=== PATIENT | female | born 1960 | race Caucasian/White ===

== ENCOUNTER 2017-01-24 10:15 | Emergency (ER) | payer BC ==
[2017-01-24] MEDS ORDERED: Meclizine TAB* 12.5 MG PO ONE (11:28)
--- NOTE | 2017-01-24 14:43 | UC ---
Gloria Blackwood Salem, scribed for Irvin Krueger MD on 01/24/17 at 1122 . Dizzy HPI HPI Summary: Patient is a 56 y/o female who presents to the with dizziness since 4 days. She reports that she had an allergy attack last week and reports sneezing. She c/o of room spinning dizziness and vomiting. She reports that dizziness is worsened with movement of the head. She also reports tingling in both legs, but denies tinnitus. She also states that the heart catheterization was negative. Prior record reviewed: mention from prior consult that heart catheterization is required. - History Of Current Complaint Chief Complaint: UCGeneralIllness Stated Complaint: DIZZY Time Seen by Provider: 01/24/17 11:03 Hx Obtained From: Patient Onset/Duration: Gradual Onset, Lasting Days Severity Initially: Moderate Severity Currently: Moderate Character: Room Spinning Aggravating Factor(s): Position Change - of head. Alleviating Factor(s): Nothing Associated Signs And Symptoms: Positive: Vomiting. Negative: Tinnitus - Allergies/Home Medications Allergies/Adverse Reactions: Allergies Allergy/AdvReac Type Severity Reaction Status Date / Time Meperidine [From Demerol HCl] Allergy Airway Verified 01/24/17 10:50 Obstruction Home Medications: Home Medications Acetaminophen [Tylenol] 01/24/17 [History] PMH/Surg Hx/FS Hx/Imm Hx Cardiovascular History Of: Reports: Cardiac Disorders - stress heartattack, Myocardial Infarction - Surgical History Surgical History: Yes Surgery Procedure, Year, and Place: c-sections - Family History Known Family History: Positive: Other - HLD. - Social History Alcohol Use: None Substance Use Type: None Smoking Status (MU): Never Smoked Tobacco Review of Systems Constitutional: Negative ENT: Negative Gastrointestinal: Vomiting Musculoskeletal: Other: - Tingling in both legs from excessive bed rest. All Other Systems Reviewed And Are Negative: Yes Physical Exam Triage Information Reviewed: Yes Appearance: Well-Appearing, No Pain Distress Vital Signs: Initial Vital Signs Temp 99.0 F 01/24/17 10:50 Pulse 81 01/24/17 10:50 Resp 16 01/24/17 10:50 BP 119/82 01/24/17 10:50 Pulse Ox 96 01/24/17 10:50 Vital Signs Reviewed: Yes ENT: Positive: Other: - MMM. TM pearly white, no effusions. No carotid bruits. EOMI. Neck: Positive: Supple, Nontender, No Lymphadenopathy Respiratory: Positive: Lungs clear. Negative: Wheezing Cardiovascular: Positive: RRR, No Murmur, Other: - No rubs or gallops. Abdomen Description: Positive: Nontender, No Organomegaly, Soft Musculoskeletal: Positive: Strength Intact, No Edema Neurological: Positive: Alert, Other: - Cranial nerves 3-12 intact. Negative pronator drift. Slzvhp-ur-enrv intact. Pqqp-zj-iowx intact. No nystagmus. Psychological: Positive: Age Appropriate Behavior Diagnostics - EKG Cardiac Rate: NL - 78 bpm. J point elevation V1-V3, which is presents as well on prior EKG 01/26/09. Dizzy Course/Dx - Course Course Of Treatment: Isolated vertigo for 4 days. Neurologic exam otherwise intact. We have considered stroke or tumor, but she is low risk for these. She will report immediately to ER for new sx. Otherwise refer to ENT for possible imaging and cranial 8 testing. - Differential Dx/Diagnosis Differential Diagnosis/HQI/PQRI: Anxiety, Coronary Artery Disease, Dysrhythmia, Labyrinthitis, Myocardial Infarction, Vasovagal Reaction Provider Diagnoses: Vertigo. Discharge - Discharge Plan Condition: Stable Disposition: HOME Prescriptions: Meclizine HCl [Meclizine 25] 25 mg PO TID PRN #20 tab PRN Reason: Dizziness Patient Education Materials: Vertigo (ED) Referrals: Chip Jaime MD [Primary Care Provider] - Trey Haywood MD [Medical Doctor] - The documentation as recorded by the Gloria uribe Salem accurately reflects the service I personally performed and the decisions made by Evans sánchez Farzad, MD.
== END 2017-01-24 11:36 | disposition home or self-care (01) ==
LOC: UCEAST 10:15
DX: R42 Dizziness and giddiness (principal); R20.2 Paresthesia of skin; Z88.5 Allergy status to narcotic agent
CPT/HCPCS: 93005; 99202; A9270-GY; G0463

== ENCOUNTER 2020-01-25 09:33 | Emergency (ER) | payer BC ==
--- OUTSIDE RECORDS SUMMARY | 2020-01-25 10:18 | XMS REPORT | Continuity of Care Document ---
:1960 External Reference #:[id number] Author Name Jory Anthony NP Address [address] [facility] [place] [address] Care Team Providers Name Role Phone Arlene Tomlin M.D. - Family Medicine Care Team Information Insurance Claims Examiner Unavailable Problems Active Problems Provider Date Salena Tomlin M.D. Onset: 11/10/2019 Anxiety Arlene Tomlin M.D. Onset: 11/10/2019 Social History Type Date Description Comments Sex Unknown Tobacco Use Start: Unknown Never Smoked Cigarettes ETOH Use Denies alcohol use Tobacco Use Start: Unknown Never Smoked Cigarettes Smoking Status Reviewed: 12/31/19 Never Smoked Cigarettes Exercise Type/Frequency Exercises sporadically Allergies, Adverse Reactions, Alerts Active Allergies Reaction Severity Comments Date Demerol mother had severe rx 02/07/2017 Codeine vomiting 02/07/2017 Medications Active Medications SIG Qnty Indications Ordering Provider Date Bupropion take 1 tablets 60tabs F34.1 Arlene Tomlin, 05/18/2019 Hydrochloride ER (XL) by mouth once M.D. daily 150mg Tablets ER 24HR Immunizations CPT Code Status Date Vaccine Lot # [id number] Given 12/31/2019 Tdap Tetanus, W Pertussis [id number] Vital Signs Date Vital Result Comment 12/31/2019 10:07am BP Systolic 110 mmHg BP Diastolic 68 mmHg Heart Rate 66 /min Body Temperature 98.1 F Respiratory Rate 16 /min Weight 171.00 lb 12/01/2019 9:13am BP Systolic 110 mmHg BP Diastolic 60 mmHg Heart Rate 66 /min Body Temperature 98.4 F Respiratory Rate 16 /min Height 68.25 inches 5'8.25" easured 12/01/2019 Weight 167.00 lb BMI (Body Mass Index) 25.2 kg/m2 Right Visual Acuity Distance 20/100 Left Visual Acuity Distance 20/25 Results Test Acquired Date Facility Test Result H/L Range Note Laboratory test 12/01/2019 [facility] Hemoglobin A1c 4.9 % 4.1-5.7 finding (607)- - ([facility]) CBC Electronic 12/01/2019 [facility] WBC 5.00 4.0-10.0 ([facility]) (607)- - RBC 4.71 3.93-6.0 Hemoglobin (Fma/CMC/CTX) 14.2 g/dL 12.0-17.0 Hematocrit (Fma/CMC/CTX) 43.0 % 35.0-50.0 Mean Corpuscular Vol 91.3 fL 80-95 Mean Corpuscular Hemoglobin 30.1 pg 25.6-32.2 Mean Corpuscular Hemo Concen 33.0 g/dL 32.2-36.0 Platelets 327 10^3/ul 163-400 RDW-CV 12.3 11.6-14.4 Mean Platelet Volume 9.2 fL 8.0-12.4 Absolute Neutrophils BLD 3.14 1.56-6.13 Absolute Lymphocytes 1.05 Low 1.18-3.74 Absolute Monocytes BLD Auto 0.46 0.24-0.82 Absolute Eos Blood 0.27 0.04-0.54 Absolute Basophils 0.08 0.01-0.08 Neutrophil % 62.8 % 34.0-70.0 Lymph% 21.0 % 20.0-52.0 Monocytes % 9.2 % 5.0-12.0 Eos % 5.4 % 0.7-7.0 Basophil% 1.6 % High 0-1.2 Lipid Profile 12/01/2019 [facility] Cholesterol 254 mg/dL High 120-200 Triglycerides 111 mg/dL 30-200 HDL Cholesterol 60 mg/dL 30-85 LDL (Calculated) 172 CALC High 0-129 VLDL Cholesterol 22 mg/dL 0-50 HDL Risk Factor 4.2 CALC 0.0-4.4 Comprehensive Metabolic 12/01/2019 [facility]) Sodium 142 mEq/L 134-149 Prof Potassium 4.4 mEq/L 3.6-5.5 Chloride 103 mEq/L 94-112 Carbon Dioxide 27 mEq/L 21-32 Glucose 104 mg/dL 70-105 BUN 12 mg/dL 6-26 Creatinine 0.7 mg/dL 0.6-1.4 BUN/Creat Ratio 17.1 CALC 8.0-36.0 Calcium 10.1 mg/dL 8.9-10.6 Total Protein 7.0 g/dL 6.4-8.3 Albumin 4.7 g/dL 3.8-5.5 Globulin 2.3 g/dL 2.0-4.8 A/G Ratio 2.0 CALC 0.6-2.3 Alk. Phosphatase 66 U/L 30-110 Alt (SGPT) 11 U/L 7-35 Ast (Sgot) 15 U/L 5-34 Total Bilirubin 0.7 mg/dL 0.2-1.3 GFR Non- >60 ml/min/1.73m^ >=60 GFR >60 ml/min/1.73m^ >=60 Laboratory test 12/01/2019 [facility] TSH 1.91 mIU/L 0.50-6.00 finding Laboratory test 12/01/2019 [facility] Cytology SEE RESULT 1 finding Thinprep BELOW w/rfx([facility] [place]) Urine Culture And 11/12/2019 [facility] Urine Culture SEE RESULT 2 Sensitivities BELOW Ua - Micro (Fma) 11/12/2019 family [facility] Appearance clear (607)- - Color yellow Glucose, Urine (Fma/CMC/CTX) neg Bilirubin neg Ketones neg SP Grav 1.020 Blood neg PH 5.5 Protein neg Urobil 0.2 Nitrite neg Leukocytes (Fma/CMC/Centrex) trace Hyaline - /Lpf Granular - /Lpf WBC (Fma,Centrex) 5-7 RBC 0-1 Mucus (Fma/CBC/Centrex) - /Lpf Epith few /Lpf Bacteria trace /Hpf Amorphous (Fma/CMC/Centrex) - /Lpf Crystals, Fluid (Fma/CMC/CTX) - Z#Comments - 1 SEE RESULT BELOW Name: ALFREDO SHARPE : [address]: Arlene Tomlin MD Acct: [id number] Unit: [id number] AGE: 59 Location: [facility] Re12/01/19 SEX: F Status: REG REF SPEC: [id number] CHAVA: 12/01/19-[address] [facility] [address]: Arlene Tomlin MD REQ: [id number] RECD: 12/03/19 STATUS: SOUT _ ORDERED: TP IMAGE ANALYS, HPV/Thin Prep, HPV 16/18 GENE COMMENTS: [id number] FINAL DIAGNOSIS Negative for Intraepithelial lesion or Malignancy HPV RESULTS Date Time Test Result Flag (u) Normal Range 12/02/19 1004 HPV EBONI RFLX GE Negative Negative The high-risk HPV types detected by the assay include: 16, 18, 31, 33, 35, 39, 45, 51, 52, 56, 58, 59, 66, and 68. SPECIMEN(S) RECEIVED A. Ectocervical/Endocervical CYTOLOGY ADEQUACY Specimen Adequacy: Satisfactory of evaluation Transformation zone component identified CONTINUED ON NEXT PAGE DEPARTMENT OF PATHOLOGY, [address] [place] [address] Abhi Sam M.D. Director [facility] # [id number] CYTOLOGY PATIENT INFORMATION Patient Information: HPV: High risk HPV RNA testing regardless of pap results. HPV 16/18 Genotype Reflex Actual Specimen Date: 12/01/19 Spec Date if unknown: 2006 Post Menopausal?: Y Hysterectomy?: N Previous Abnormal Pap Smears?:N Signed by and Reported on: TAMMIE Davis(ASCP) [id number] This Pap test was evaluated with the assistance of the HightowerPrep Test Imaging System. Due to cytologic findings at the distribution district supervisor microscope, comprehensive manual rescreening by a Game And Fish Protector may be required. The Pap Smear is a screening test designed to aid in the detection of premalignant and malignant conditions of the uterine cervix. It is not a diagnostic procedure and should not be used as the sole means of detecting cervical cancer. Both false- positive and false- negative reports do occur. Depending on your risk status, a Pap smear should be obtained and evaluated every 1-3 years. END OF REPORT DEPARTMENT OF PATHOLOGY, [address] [place] [address] Abih Sam M.D. Director [facility] # [id number] 2 SEE RESULT BELOW Name: ALFREDO SHARPE : [address]: Arlene Tomlin MD Acct: [id number] Unit: [id number] AGE: 59 Location: [facility] Re11/12/19 SEX: F Status: REG REF SPEC: [id number] CHAVA: 11/12/19-[address]: Arlene Tomlin MD REQ: [id number] RECD: 11/13/19 STATUS: COMP _ SOURCE: URINE SPDESC: ORDERED: Urine Culture COMMENTS: [id number] 1 marti Urine Source: Random Procedure Result Reported Site Urine Culture Final 11/15/19- 1324 ML Organism 1 STREP GROUP B [place] Count 1-10,000 (Few) CFU/ML Susceptibility testing of penicillins and other B-lactams approved by FDA for treatment of Streptococcus pyogenes (Group A Strep) and Streptococcus agalactiae (Group B Strep) is not necessary for clinical purposes and need not be done routinely, since as with vancomycin, resistant strains have not been recognized. (CLSI B521-H67;p.66) Positive isolates will be saved for one week. Please call the Microbiology Laboratory if further susceptibility testing is needed. * - Main Lab . END OF REPORT DEPARTMENT OF PATHOLOGY, [address] [place] [address] Abhi Sam M.D. Director [facility] # [id number] Procedures Date Code Description Status 12/01/2019 34111 Vision Test- screening test of visual acuity, Completed quantitative, bila Medical Devices Description No Information Available Encounters Type Date Location Provider Dx Diagnosis Office Visit 12/31/2019 Main Office Jory Freeman K80.20 Calculus of 10:00a KARLI Anthony gallbladder w/o cholecystitis w/o obstruction R10.10 Upper abdominal pain, unspecified Z23 Encounter for immunization Office Visit 12/01/2019 9:20a Main Office Arlene Tomlin, Z00.00 Encntr for general M.D. adult medical exam w/o abnormal findings N84.1 Polyp of cervix uteri F41.9 Anxiety disorder, unspecified E78.5 Hyperlipidemia, unspecified R73.01 Impaired fasting glucose Office Visit 11/12/2019 6:40p Main Office Arlene Tomlin F41.9 Anxiety disorder, MVikasD. unspecified E78.5 Hyperlipidemia, unspecified R73.01 Impaired fasting glucose R30.0 Dysuria Z12.31 Encntr screen mammogram for malignant neoplasm of breast Z12.11 Encounter for screening for malignant neoplasm of colon Assessments Date Code Description Provider 12/31/2019 K80.20 Calculus of gallbladder without Jory Anthony NP cholecystitis without obstruction 12/31/2019 R10.10 Upper abdominal pain, unspecified Jory Anthony NP 12/31/2019 Z23 Encounter for immunization Jory Anthony NP 12/01/2019 Z00.00 Encounter for general adult medical Arlene Tomlin M.D. examination without abnormal findings 12/01/2019 N84.1 Polyp of cervix uteri Arlene Tolmin M.D. 12/01/2019 F41.9 Anxiety disorder, unspecified Arlene Tomlin M.D. 12/01/2019 E78.5 Hyperlipidemia, unspecified Arlene Tomlin M.D. 12/01/2019 R73.01 Impaired fasting glucose Arlene Tomlin M.D. 11/12/2019 F41.9 Anxiety disorder, unspecified Arlene Tomlin M.D. 11/12/2019 E78.5 Hyperlipidemia, unspecified Arlene Tomlin M.D. 11/12/2019 R73.01 Impaired fasting glucose Arlene Tomlin M.D. 11/12/2019 R30.0 Dysuria Arlene Tomlin M.D. 11/12/2019 Z12.31 Encounter for screening mammogram for Arlene Tomlin M.D. malignant neoplasm of breast 11/12/2019 Z12.11 Encounter for screening for malignant Arlene Tomlin M.D. neoplasm of colon Plan of Treatment 12/31/2019 - Jory Anthony, NPK80.20 Calculus of gallbladder without cholecystitis without obstructionComments:Referral to surgical associates US compeleted 10/2018; sx consistent with cholecystitis no pain at present, will refer with the plan that if pain returns/worsens, she seeks medical attention for more acute intervention avoid triggering foods patient instructed to call back if condition fails to improve or worsens.R10.10 Upper abdominal pain, unspecifiedComments:suspect cholecystitis; known gallstones no pain present at this timeZ23 Encounter for immunizationComments:Tdap administered, this is good for 10 years without insult. If you get a possible exposure after 5 years, your provider may decide to give you a booster. This vaccine also protects you against pertussis, or "whooping cough" also known as the "100 day cough ".AllComments:Medication Management Patient Understands medications he 's taking? Yes No Are there Barriers to Adherence? Yes No Has the patient been asked about herbal supplements and therapies, andOTC meds? Yes No Care Plan1. Patient has been queried about patient's goals/ preferences and functional/lifestyle goals at relevant visits. If relevant, describe: na2. Treatment goals as explained to the patient: above3. Are there barriers to meeting treatment goals? Yes No If Yes, please describe: disease process 4. Self-Management goals as described to the patient: Yes NoAs always, we strongly encourage a healthy diet and making physical activity a part of your every day life. If you have questions about how or where to start , please contact the office. Functional Status Description No Information Available Mental Status Description No Information Available Referrals Refer to Reason for Referral Status Appt Date Luba Davis MD colonoscopy jw Scheduled 02/13/[address] [place] [address] [phone]
--- OUTSIDE RECORDS SUMMARY | 2020-01-25 10:18 | XMS REPORT | Continuity of Care Document ---
:1960 External Reference #:[id number] Author Name Arlene Tomlin M.D. Address [address] [facility] [place] [address] Care Team Providers Name Role Phone Arlene Tomlin M.D. - Family Medicine Care Team Information Phone Counselor Unavailable Problems Active Problems Provider Date Salena Tomlin M.D. Onset: 11/10/2019 Anxiety Arlene Tomlin M.D. Onset: 11/10/2019 Social History Type Date Description Comments Sex Unknown Tobacco Use Start: Unknown Never Smoked Cigarettes ETOH Use Denies alcohol use Tobacco Use Start: Unknown Never Smoked Cigarettes Smoking Status Reviewed: 12/01/19 Never Smoked Cigarettes Exercise Type/Frequency Exercises sporadically Allergies, Adverse Reactions, Alerts Active Allergies Reaction Severity Comments Date Demerol mother had severe rx 02/07/2017 Codeine vomiting 02/07/2017 Medications Active Medications SIG Qnty Indications Ordering Provider Date Bupropion take 1 tablets 60tabs F34.1 Arlene Tomlin, 05/18/2019 Hydrochloride ER (XL) by mouth once M.D. daily 150mg Tablets ER 24HR Immunizations Description No Information Available Vital Signs Date Vital Result Comment 12/01/2019 9:13am BP Systolic 110 mmHg BP Diastolic 60 mmHg Heart Rate 66 /min Body Temperature 98.4 F Respiratory Rate 16 /min Height 68.25 inches 5'8.25" easured 12/01/2019 Weight 167.00 lb BMI (Body Mass Index) 25.2 kg/m2 Right Visual Acuity Distance 20/100 Left Visual Acuity Distance 20/25 11/12/2019 6:46pm BP Systolic 110 mmHg BP Diastolic 80 mmHg Heart Rate 66 /min Body Temperature 98.6 F Respiratory Rate 16 /min Height 69.5 inches 5'9.50" Weight 170.00 lb BMI (Body Mass Index) 24.7 kg/m2 Results Test Acquired Date Facility Test Result H/L Range Note Urine Culture And 11/12/2019 [facility] SEE RESULT 1 Sensitivities BELOW Ua - Micro (Fma) 11/12/2019 [...] [address]: Arlene Tomlin MD Acct: [id number] Unit: [id number] AGE: 59 Location: [facility] Re11/12/19 SEX: F Status: REG REF SPEC: [id number] CHAVA: 11/12/19-[address]: Arlene Tomlin MD REQ: [id number] RECD: 11/13/19470 STATUS: COMP _ SOURCE: URINE SPDESC: ORDERED: Urine Culture COMMENTS: [id number] marti Urine Source: Random Procedure Result Reported Site Urine Culture Final 11/15/19- 1324 ML Organism 1 STREP GROUP B [place] Count 1-10,000 (Few) CFU/ML Susceptibility testing of penicillins and other B-lactams approved by FDA for treatment of Streptococcus pyogenes (Group A Strep) and Streptococcus agalactiae (Group B Strep) is not necessary for clinical purposes and need not be done routinely, since as with vancomycin, resistant strains have not been recognized. (CLSI W281-W35;p.66) Positive isolates will be saved for one week. Please call the Microbiology Laboratory if further susceptibility testing is needed. * ML - Main Lab . END OF REPORT DEPARTMENT OF PATHOLOGY, [address] [place] [address] Abhi Sam M.D. Director [facility] # [id number] Procedures Date Code Description Status 12/01/2019 88293 Vision Test- screening test of visual acuity, Completed quantitative, bila Medical Devices Description No Information Available Encounters Type Date Location Provider Dx Diagnosis Office Visit 11/12/2019 Main Office Arlene Tomlin M.D. F41.9 Anxiety disorder, 6:40p unspecified E78.5 Hyperlipidemia, unspecified R73.01 Impaired fasting glucose R30.0 Dysuria Z12.31 Encntr screen mammogram for malignant neoplasm of breast Z12.11 Encounter for screening for malignant neoplasm of colon Assessments Date Code Description Provider 12/01/2019 Z00.00 Encounter for general adult medical examination Arlene Tomlin M.D. without abnormal findings 12/01/2019 N84.1 Polyp of cervix uteri Arlene Tomlin M.D. 12/01/2019 F41.9 Anxiety disorder, unspecified Arlene Tomlin M.D. 12/01/2019 E78.5 Hyperlipidemia, unspecified Arlene Tomlin M.D. 11/12/2019 F41.9 Anxiety disorder, unspecified Arlene Tomlin M.D. 11/12/2019 E78.5 Hyperlipidemia, unspecified Arlene Tomlin M.D. 11/12/2019 R73.01 Impaired fasting glucose Arlene Tomlin M.D. 11/12/2019 R30.0 Dysuria Arlene Tomlin M.D. 11/12/2019 Z12.31 Encounter for screening mammogram for malignant Arlene Tomlin M.D. neoplasm of breast 11/12/2019 Z12.11 Encounter for screening for malignant neoplasm Arlene Tomlin M.D. of colon Plan of Treatment 12/01/2019 - Arlene Tomlin M.D.Z00.00 Encounter for general adult medical examination without abnormal findingsComments:Encourage an active and healthy lifestyle with proper eating habits including fruits, vegetables, 6-8 glasses of water a day and monitoring portion size. Recommend 30 minutes of daily physical activityincluding walking, aerobic exercise, sports, yoga or dance. Any activity is better than no activity.Recommend routine eye and dental exams. Next physical is due in 1-2 years. Recommend annual influenza vaccinationFollow up:1 yearN84.1 Polyp of cervix uteriComments:discussed monitoring vs surgical removal, can cause vaginal bleeding or discomfort with intercourse;call if symptoms rwaxgzC09.9 Anxiety disorder, unspecifiedComments: stable on regimen, call if symptoms wclmtmK58.5 Hyperlipidemia, unspecifiedComments:check labsAllComments:Medication Management Patient Understands medications she's taking? Yes No Are there Barriers to Adherence? Yes No Has the patient been asked about herbal supplements and therapies, and OTC meds? Yes No Functional Status Description No Information Available Mental Status Description No Information Available Referrals Refer to Reason for Referral Status Appt Date [facility] colonoscopy jw Sent [address] [place] [address] [phone]
--- OUTSIDE RECORDS SUMMARY | 2020-01-25 10:18 | XMS REPORT | Continuity of Care Document ---
:1960 External Reference #:[id number] Author Name Lizabeth Amaya M.D. Address [address] [place] [address] Care Team Providers Name Role Phone Arlene Tomlin M.D. 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 Onset: 11/10/2019 Anxiety Arlene Tomlin M.D. Onset: 11/10/2019 Social History Type Date Description Comments Sex Unknown Tobacco Use Start: Unknown Never Smoked Cigarettes ETOH Use Denies alcohol use Tobacco Use Start: Unknown Never Smoked Cigarettes Smoking Status Reviewed: 12/31/19 Never Smoked Cigarettes Exercise Type/Frequency Exercises sporadically Allergies, Adverse Reactions, Alerts Active Allergies Reaction Severity Comments Date Clementel mother had severe rx 02/07/2017 Codeine vomiting 02/07/2017 Medications Active Medications SIG Qnty Indications Ordering Provider Date Bupropion take 1 tablets 60tabs F34.1 Arlene Tomlin, 05/18/2019 Hydrochloride ER (XL) by mouth once M.D. daily 150mg Tablets ER 24HR Immunizations CPT Code Status Date Vaccine Lot # [id number] Given 12/31/2019 Tdap Tetanus, W Pertussis [id number] Vital Signs Date Vital Result Comment 01/24/2020 7:40pm BP Systolic 96 mmHg BP Diastolic 70 mmHg Heart Rate 88 /min Body Temperature 99.0 F Height 69.5 inches 5'9.50" per pt Weight 175.00 lb per pt BMI (Body Mass Index) 25.5 kg/m2 12/31/2019 10:07am BP Systolic 110 mmHg BP Diastolic 68 mmHg Heart Rate 66 /min Body Temperature 98.1 F Respiratory Rate 16 /min Weight 171.00 lb Results Test Acquired Date Facility Test Result H/L Range Note Laboratory test 12/01/2019 [facility] Hemoglobin A1c 4.9 % 4.1-5.7 finding (607)- - ([facility]) CBC Electronic 12/01/2019 [facility] WBC 5.00 4.0-10.0 ([facility]) (607)- - RBC 4.71 3.93-6.0 Hemoglobin [...] % High 0-1.2 Lipid Profile 12/01/2019 Joni Coronado([facility]) Cholesterol 254 mg/dL High 120-200 Triglycerides 111 mg/dL 30-200 HDL Cholesterol 60 mg/dL 30-85 LDL (Calculated) 172 CALC High 0-129 VLDL Cholesterol 22 mg/dL 0-50 HDL Risk Factor 4.2 CALC 0.0-4.4 Comprehensive Metabolic 12/01/2019 Joni Coronado([facility]) Sodium 142 mEq/L 134-149 Prof Potassium 4.4 [...] >60 ml/min/1.73m^ >=60 Laboratory test 12/01/2019 [facility] Ivonne(a) TSH 1.91 mIU/L 0.50-6.00 finding Laboratory test 12/01/2019 [facility] Cytology SEE RESULT 1 finding Thinprep BELOW w/rfx([facility]) Urine Culture And 11/12/2019 [facility] Urine Culture SEE RESULT 2 Sensitivities BELOW Ua - Micro (a) 11/12/2019 family medicine Appearance clear (607)- - [...] Z#Comments - 1 SEE RESULT BELOW Name: DAVISALFREDO Chris : [address]: Arlene Tomlin MD Acct: [id number] Unit: [id number] AGE: 59 Location: [facility] Re12/01/19 SEX: F Status: REG REF SPEC: [id number] CHAVA: 12/01/19-[address] [facility] [address]: Arlene Tomlin MD REQ: [id number] RECD: 12/03/193845 STATUS: SOUT _ ORDERED: TP IMAGE ANALYS, HPV/Thin Prep, HPV 16/18 GENE COMMENTS: [id number] FINAL DIAGNOSIS Negative for Intraepithelial lesion or [...] CONTINUED ON NEXT PAGE DEPARTMENT OF PATHOLOGY, [address] [place] [address] Abhi Sam M.D. Director [facility] # [id number] CYTOLOGY PATIENT INFORMATION Patient Information: HPV: High risk HPV RNA testing regardless of pap results. HPV 16/18 Genotype Reflex Actual Specimen Date: 12/01/19 Spec Date if unknown: 2006 Post Menopausal?: Y Hysterectomy?: N Previous Abnormal Pap Smears?:N Signed by and Reported on: TAMMIE Davis(ASCP) [id number] This Pap test was evaluated with the assistance of the ThinPrep Test Imaging System. Due to cytologic findings at the poly packer and heat sealer microscope, comprehensive manual rescreening by a Asbestos Surveyor may be required. The Pap Smear is [...] years. END OF REPORT DEPARTMENT OF PATHOLOGY, [address] [place] [address] Abhi Sam M.D. Director [facility] # [id number] 2 SEE RESULT BELOW Name: ALFREDO SHARPE : [address]: Arlene Tomlin MD Acct: [id number] Unit: [id number] AGE: 59 Location: [facility] Re11/12/19 SEX: F Status: REG REF SPEC: [id number] CHAVA: 11/12/19-[address]: Arlene Tomlin MD REQ: [id number] RECD: 11/13/19 STATUS: COMP _ S[facility]: Urine Culture COMMENTS: [id number] 1 marti Urine Source: Random Procedure Result Reported Site Urine Culture Final 11/15/19- 1324 ML Organism 1 STREP GROUP B [place] Count 1-10,000 (Few) CFU/ML Susceptibility testing of penicillins and other B-lactams approved by FDA for treatment of Streptococcus pyogenes (Group A Strep) and Streptococcus agalactiae (Group B Strep) is not necessary for clinical purposes and need not be done routinely, since as with vancomycin, resistant strains have not been recognized. (CLSI V452-R91;p.66) Positive isolates will be saved for one week. Please call the Microbiology Laboratory if further susceptibility testing is needed. * - Main Lab . END OF REPORT DEPARTMENT OF PATHOLOGY, [address] [place] [address] Abhi Sam M.D. Director [facility] # [id number] Procedures Date Code Description Status 12/01/2019 93443 Vision Test- screening test of visual acuity, [...] Office Visit 11/12/2019 6:40p Main Office Arlene Tomlin, F41.9 Anxiety disorder, M.D. unspecified E78.5 Hyperlipidemia, unspecified R73.01 Impaired fasting glucose R30.0 Dysuria Z12.31 Encntr screen mammogram for malignant neoplasm of breast Z12.11 Encounter for screening for malignant neoplasm of colon Assessments Date Code Description Provider 01/24/2020 J06.9 Acute upper respiratory infection, Lizabeth Amaya M.D. unspecified 12/31/2019 K80.20 Calculus of gallbladder without Jory [...] M.D. neoplasm of colon Plan of Treatment 01/24/2020 - Lizabeth Amaya M.D.J06.9 Acute upper respiratory infection, unspecifiedNew Labs:Flu A&B (Fma), Ordered: 01/24/20Quickstrep, Ordered: 11/02Comments:flu and throat swab both negative. continue tylenol. throat lozenge. Hot toddies - hot black tea with lemon and honey. (garlic awilda)We cierra be in touch tomorrow after calling the health department. You need to self quarantine until we get the results of the barboza virus test.AllComments: Medication Management Patient Understands medications she 's taking? Yes No Are there Barriers to Adherence? Yes No Has the patient been asked about herbal supplements and therapies, and OTC meds? Yes No Care Plan1. Patient has been queried about patient's goals/preferences and functional/lifestyle goals at relevant visits. If relevant, describe: na2. Treatment goals as explained to the patient: above3. Are there barriers to meeting treatment goals? Yes No If Yes, please describe:4. Self- Management goals as described to the patient: Yes No Functional Status Description No Information Available Mental Status Description No Information Available Referrals Refer to Reason for Referral Status Appt Date Luba Davis MD colonoscopy jw Scheduled 02/13/[address] [place] [address] [phone] Subhash Robles Consult and treat cholecystitis. Any provider. Scheduled Pt will call to scheduled her own appt. LT [address], [address] [place], [place] [id number] [phone]
--- OUTSIDE RECORDS SUMMARY | 2020-01-25 10:18 | XMS REPORT | Continuity of Care Document ---
:1960 External Reference #:[id number] Author Name Jaxson Sands MD, FACS (transmitted by agent of provider Darryl Slater) Address [address] [place] [address] Care Team Providers Name Role Phone Arlene Tomlin MD - Family Care Team Information Numerologist [phone] Medicine Problems Description No Information Available Social History Type Date Description Comments Sex Unknown ETOH Use Denies alcohol use Tobacco Use Start: Unknown Patient has never smoked Recreational Drug Use Denies Drug Use Allergies, Adverse Reactions, Alerts Active Allergies Reaction Severity Comments Date Demerol 01/09/2020 Codeine 01/09/2020 Medications Active Medications SIG Qnty Indications Ordering Provider Date Bupropion Hydrochloride 1 by mouth Unknown ER (SR) every day 150mg Tablets ER 12HR Immunizations Description No Information Available Vital Signs Date Vital Result Comment 01/14/2020 11:15am Height 69 inches 5'9" Weight 170.00 lb Heart Rate 76 /min BP Systolic Sitting 122 mmHg BP Diastolic Sitting 68 mmHg Respiratory Rate 18 /min Body Temperature 98.1 F BMI (Body Mass Index) 25.1 kg/m2 Results Description No Information Available Procedures Description No Information Available Medical Devices Description No Information Available Encounters Description No Information Available Assessments Date Code Description Provider 01/14/2020 K80.20 Calculus of gallbladder without Jaxson Sands MD, FACS cholecystitis without obstruction Plan of Treatment Future Appointment(s):02/18/2020 10:00 am - Jaxson Sands MD, FACS at [facility]02/12/2020 3:30 pm - Jaxson Sands MD, FACS at [facility]01/14/2020 - Jaxson Sands MD, FACSK80.20 Calculus of gallbladder without cholecystitis without obstructionRecommendations:Surgical removal of the gallbladder. Functional Status Description No Information Available Mental Status Description No Information Available Referrals Description No Information Available
[2020-01-25 10:59] VITALS: BP 103/80
[2020-01-25 11:05] LABS: Influenza A Molecular Negative (Negative); Influenza B Molecular Negative (Negative)
--- NOTE | 2020-01-25 11:48 | UC ---
FLU HPI - HPI Summary HPI Summary: 5 DAYS AGO ON 01/20/2020 PATIENT DROVE TO [facility] TO VISIT HER SISTER. SHE DROVE BACK THE NEXT DAY ON 01/21/2020. WHILE IN [facility] SHE WENT TO A BAKERY AND THEN SPENT THE REST OF HER TIME AT HER SISTER'S HOUSE. THE DAY AFTER HER RETURN ON 01/22/2020 SHE DEVELOPED A COUGH AND SORE THROAT. THE NEXT DAY ON 01/23/2020 SHE DEVELOPED A FEVER OF 100.8. PATIENT FEELS ACHY AND HAS A HEADACHE. NO NAUSEA/VOMITING. SORE THROAT AND COUGH HAVE IMPROVED TODAY. WAS SENT TO THE URGENT CARE BY HER PCP OFFICE FOR EVALUATION FOR COVID19. HAD NEGATIVE FLU AND STREP TESTING AT HER PCP OFFICE. - History of Current Complaint Chief Complaint: UCRespiratory Stated Complaint: COUGH,FEVER-[facility] Hx Obtained From: Patient Onset/Duration: Gradual Onset, Lasting Days Severity Currently: Mild Severity Initially: Mild Pain Intensity: 2 Pain Scale Used: 0-10 Numeric Associated Signs & Symptoms: Positive: Fever, Myalgia, Cough, Sore Throat, Nasal Congestion, Headache - Allergy/Home Medications Allergies/Adverse Reactions: Allergies Allergy/AdvReac Type Severity Reaction Status Date / Time codeine Allergy Vomiting Verified 01/25/20 10:25 meperidine [From Demerol] Allergy Airway Verified 01/25/20 10:25 Obstruction Home Medications: Home Medications Acetaminophen [Tylenol] 250 mg PO ONCE PRN 01/24/17 [History Confirmed 01/25/20] buPROPion HCL [Bupropion HCl Sr] 1 tab PO DAILY 01/25/20 [History Confirmed ] PMH/Surg Hx/FS Hx/Imm Hx Psychological History: Depression - Surgical History Surgical History: Yes Surgery Procedure, Year, and Place: c-sections. broken leg repair. appendectomy. choleycystectomy on 03/11/20 - Family History Known Family History: Positive: Other - HLD. - Social History Alcohol Use: None Substance Use Type: None Smoking Status (MU): Never Smoked Tobacco Review of Systems All Other Systems Reviewed And Are Negative: Yes Constitutional: Positive: Fever, Chills, Fatigue ENT: Positive: Sore Throat, Nasal Discharge Respiratory: Positive: Cough Cardiovascular: Positive: Negative Gastrointestinal: Positive: Negative Musculoskeletal: Positive: Myalgia Neurological/Mental Status: Positive: Headache Physical Exam Triage Information Reviewed: Yes Appearance: Well-Appearing, No Pain Distress, Well-Nourished Vital Signs: Initial Vital Signs Temp 97.9 F 01/25/20 10:18 Pulse 74 01/25/20 10:18 Resp 18 01/25/20 10:18 BP 103/80 01/25/20 10:18 Pulse Ox 96 01/25/20 10:18 Laboratory Tests 01/25/20 10:53 Influenza A (Rapid) Negative Influenza B (Rapid) Negative Vital Signs Reviewed: Yes Eyes: Positive: Conjunctiva Clear ENT: Positive: Hearing grossly normal, Pharynx normal, TMs normal Neck: Positive: Supple, Nontender, No Lymphadenopathy Respiratory Exam: Normal Cardiovascular Exam: Normal Abdomen Description: Positive: Nontender, Soft Musculoskeletal: Positive: No Edema Neurological: Positive: Alert Psychological: Positive: Age Appropriate Behavior Skin: Negative: Rashes Flu Course/Dx - Course Course Of Treatment: FLU NEGATIVE. [facility] CONTACTED AND TESTING FOR COVID 19 AND VIRAL RESPIRATORY PATHOGENS APPROVED. SWABS OBTAINED AND SENT OUT. PATIENT IS DISCHARGED TO SELF QUARANTINE IN HER HOME AWAITING RESULTS. HEALTH DEPARTMENT WILL CONTACT HER WITH FURTHER INSTRUCTIONS ONCE HER RESULTS ARE AVAILABLE. ADVISED REST, HYDRATION, OTC MEDS NEEDED FOR FEVER AND DISCOMFORT. SHE IS TO CALL 911 IF HER SYMPTOMS DETERIORATE. - Differential Dx/Diagnosis Provider Diagnosis: Flu-like symptoms Discharge ED - Sign-Out/Discharge Documenting (check all that apply): Patient Departure All imaging exams completed and their final reports reviewed: No Studies - Discharge Plan Condition: Stable Disposition: HOME Patient Education Materials: Viral Syndrome (ED) Referrals: Arlene Tomlin MD [Primary Care Provider] - If Needed Additional Instructions: FLU SWAB NEGATIVE. [facility] HAS APPROVED YOUR TESTING FOR COVID-19 AND OTHER RESPIRATORY VIRUSES. SWABS WERE OBTAINED AND SENT OUT. STAY WELL RESTED, HYDRATED AND TAKE OTC MEDICATIONS NEEDED FOR FEVER AND DISCOMFORT. YOU HAVE BEEN DISCHARGED HOME TO SELF QUARANTINE PER [facility]'S RECOMMENDATIONS. ONCE YOUR RESULTS ARE AVAILABLE YOU WILL BE CONTACTED BY THE HEALTH DEPARTMENT WITH FURTHER INSTRUCTIONS. IF YOU DEVELOP ANY RESPIRATORY DISTRESS OR CONCERNING SYMPTOMS CALL 911. - Billing Disposition and Condition Condition: STABLE Disposition: Home
--- NOTE | 2020-01-27 11:45 | ED ---
Progress - Progress Note Progress Note: PLEASE CALL AND INFORM PT THAT SHE IS POSITIVE FOR RHINOVIRUS WHICH IS A VARIANT OF COMMON COLD VIRUS Course/Dx - Diagnoses Provider Diagnoses: Flu-like symptoms Discharge ED - Sign-Out/Discharge Documenting (check all that apply): Post-Discharge Follow Up All imaging exams completed and their final reports reviewed: No Studies - Discharge Plan Condition: Stable Disposition: HOME Patient Education Materials: Viral Syndrome (ED) Referrals: Arlene Tomlin MD [Primary Care Provider] - If Needed Additional Instructions: FLU SWAB NEGATIVE. [facility] HAS APPROVED YOUR TESTING FOR COVID-19 AND OTHER RESPIRATORY VIRUSES. SWABS WERE OBTAINED AND SENT OUT. STAY WELL RESTED, HYDRATED AND TAKE OTC MEDICATIONS NEEDED FOR FEVER AND DISCOMFORT. YOU HAVE BEEN DISCHARGED HOME TO SELF QUARANTINE PER [facility]'S RECOMMENDATIONS. ONCE YOUR RESULTS ARE AVAILABLE YOU WILL BE CONTACTED BY THE HEALTH DEPARTMENT WITH FURTHER INSTRUCTIONS. IF YOU DEVELOP ANY RESPIRATORY DISTRESS OR CONCERNING SYMPTOMS CALL 911. - Billing Disposition and Condition Condition: STABLE Disposition: Home
== END 2020-01-25 12:14 | disposition home or self-care (01) ==
LOC: UCEAST 09:33
DX: R50.9 Fever, unspecified (principal); J02.9 Acute pharyngitis, unspecified; R05 Cough; R51 Headache; F32.9 Major depressive disorder, single episode, unspecified; M79.10 Myalgia, unspecified site; Z88.5 Allergy status to narcotic agent; Z79.899 Other long term (current) drug therapy
CPT/HCPCS: 99212; G0463